=== PATIENT | female | born 1960 | race Hispanic/Latino ===

== ENCOUNTER → 2019-04-29 | Day surgery (SDC) | payer OTHER ==
[2019-04-27 13:39] LABS: BASOPHILS % 0.2 % (0.0-1.0); EOSINOPHILS # (AUTO) 0.1 (0.0-0.4); EOSINOPHILS % 1.3 % (0.0-6.0); HEMOGLOBIN 13.3 g/dL (12.0-16.0); LYMPHOCYTES # (AUTO) 1.9 (1.0-3.2); LYMPHOCYTES % 30.9 % (18.0-39.1); MEAN CORPUSCULAR HEMOGLOBIN 28.7 pg (28-32); MEAN CORPUSCULAR HGB CONC 33.3 g/dL (31-35); MEAN CORPUSCULAR VOLUME 86.2 fL (81-99); MONOCYTES # (AUTO) 0.4 (0.2-0.8); MONOCYTES % 6.8 % (4.4-11.3); NEUTROPHILS # (AUTO) 3.8 (2.1-6.9); NEUTROPHILS % 60.5 % (38.7-80.0); PLATELET COUNT 237 x10e3/uL (140-360); RED BLOOD COUNT 4.64 x10e6/uL (3.6-5.1); RED CELL DISTRIBUTION WIDTH 12.5 % (11.7-14.4)
[2019-04-27 13:48] LABS: ANION GAP 12.9 mmol/L (8-16); BLOOD UREA NITROGEN 16 mg/dL (7-26); BUN/CREATININE RATIO 25 (6-25); CALCIUM 9.5 mg/dL (8.4-10.2); CARBON DIOXIDE 27 mmol/L (22-29); CHLORIDE 104 mmol/L (98-107); CREATININE, SERUM 0.63 mg/dL (0.57-1.11); EST GLOMERULAR FILTRATION RATE > 60 ML/MIN (60-); GLUCOSE 123 mg/dL (74-118); POTASSIUM 3.9 mmol/L (3.5-5.1); SODIUM 140 mmol/L (136-145)
[~2019-04-29] MED LIST: ASPIRIN81 MG PO; BUPIVACAINE 0.25%/EPI 30ML SDV INJ ONE; CENTRUM ADULTS1 EACH PO; CITRACAL + BON1 EACH PO; DEXAMETHASONE SOD PHOS INJ 4 MG/ML VIAL ONE; FENTANYL CITRATE/PF 100MCG/2 ML INJ ONE; LEVOTHYROXINE50 MCG PO; LIDOCAINE HCL 1% LOCAL INJ 20 ML VIAL ONE; LIDOCAINE HCL 2% LOCAL INJ 5 ML SDV VIAL INJ ONE; MIDAZOLAM HCL 2 MG/2 ML VIAL ONE; ONDANSETRON HCL INJ 2MG/ML 2ML 2 MG/ML VIAL ONE; PROPOFOL IV EMULSION 10 MG/ML 20 ML VIAL ONE; SEVOFLURANE INHAL SOLN 250 ML PEN BTL ONE; TRANEXAMIC ACI650 MG PO; VITAMIN D22000 UNIT PO
[2019-04-29 15:10] VITALS: BP 107/64
--- NOTE | 2019-04-29 20:30 | Operative Report ---
DATE OF PROCEDURE: 04/29/2019 SURGEON: Pan Cheek MD PREOPERATIVE DIAGNOSIS: Suspicious mass of the left breast. POSTOPERATIVE DIAGNOSIS: Suspicious mass of the left breast, pending permanent section. OPERATION PERFORMED: Left partial mastectomy with preoperative mammographic directed needle localization and intraoperative specimen mammography. TRANSPORTATION INSPECTOR: BROOKE Murguia. ANESTHESIA: General. COMPLICATIONS: None. ESTIMATED BLOOD LOSS: Minimal. DESCRIPTION OF PROCEDURE: With the patient lying in bed in the supine position under good general anesthesia after having undergone a needle localization of the mass on the left breast. The left breast was prepped with Betadine solution and draped in the usual manner. The area overlying the lesion was then infiltrated with 0.25% Marcaine. An incision was made, which was carried down through the subcutaneous tissue and the wire was followed to the area in question, which was then encircled and totally and completely removed. The specimen was sent for specimen mammography, which showed the clip was contained within the specimen, although it was somewhat close in the upper margin, so we went ahead then and re-resected a small portion of the upper margin to make sure that the rest of the lesion was totally resected. The whole area was then thoroughly irrigated. Perfect hemostasis was ascertained. The breast tissue was then reapproximated with interrupted sutures of 2-0 chromic and the skin was closed with subcuticular 5-0 Vicryl. Benzoin, Steri-Strips, and Band-Aids were applied. The sponge, lap, and needle count was correct. The patient tolerated the procedure well and returned to the recovery room in stable condition. Pan Cheek MD JLR/MODL /[id number]
--- NOTE | 2019-04-30 08:23 | Diagnostic Imaging Report ---
THIS REPORT HAS BEEN AMENDED. #[id number] - [id number] NEEDLE LOCALIZATION LEFT BREAST: 04/29/2019 Correlation is made to exams dated: 02/04/2019 stereotactic biopsy, 01/13/2019 ultrasound and 01/13/2019 mammogram - [facility]. A needle localization was performed for the marker clip located in the left breast at 3 o'clock middle depth. This was described on the previous mammography report. The skin was prepped in the usual manner. Local anesthetic was administered to the access site. A 7 cm Kopans needle was inserted into the targeted area. IMPRESSION: NEEDLE LOCALIZATION Needle localization for the marker clip in the left breast at 3 o'clock middle depth was successful. TAIWO MÉNDEZ M.D. ct/:04/29/2019 14:20:35 Equipment Mechanic Specialist: Maria Ines YOUNGBLOOD(Day[place])(Bonnie), [facility] [id number] AMENDMENT: 06/03/2019 TAIWO MÉNDEZ M.D. Pathology report from the excisional biopsy has become available. The report indicates: mammary duct ectasia and apocrine metaplasia. Negative for carcinoma. Please refer to the full report, or consult the hospital pathologist, for additional details.
--- NOTE | 2019-04-30 08:23 | Diagnostic Imaging Report ---
#[id number] - BRSPECLT SPECIMEN LEFT BREAST: 04/29/2019 Correlation is made to exams dated: 04/29/2019 localization - [facility], 01/13/2019 ultrasound, 01/13/2019 mammogram and 02/04/2019 stereotactic biopsy - [facility]. A specimen was imaged for the previous biopsy site located in the left breast at 3 o'clock middle depth. IMPRESSION: SPECIMEN The imaged specimen includes a biopsy clip and the distal portion of the biopsy wire. TAIWO MÉNDEZ M.D. ct/penrad:04/29/2019 14:21:35 Automobile Parker: Maria Ines YOUNGBLOOD(R)(M), [facility]
--- OUTSIDE RECORDS SUMMARY | 2019-05-07 11:53 | XMS REPORT ---
Author Author [facility] Address Unknown Phone Unavailable Care Team Providers Care Data Officer Name Role Phone Esperanza CAMPBELL Unavailable Unavailable Problems This patient has no known problems. Allergies, Adverse Reactions, Alerts This patient has no known allergies or adverse reactions. Medications This patient has no known medications. Results Test Description Test Time Test Comments Text Results Atomic Results Result Comments BREAST SPECIMEN LT RADIOGRAPH 2019-04-29 13:31:00 [place] [address] Patient Name: LARA CAMARA MR #: [id number] : 1960 Age/Sex: 58/F Req #: [id number] [facility] Physician: Ordered by: JNE CAMPBELL MD Report #: [id number] Location: OR Room/Bed: Procedure: [id number] MG/BREAST SPECIMEN LT RADIOGRAPH Exam Date: 04/29/19 Exam Time: 1319 REPORT STATUS: Signed #[id number] - BRSPECLT SPECIMEN LEFT B REAST: 04/29/2019 Correlation is made to exams dated: 04/29/2019 localization - [facility], 01/13/2019 ultrasound, 01/13/2019 mammogram and 02/04/2019 stereotactic biopsy - [facility]. A specimen was imaged for the previous biopsy site located in the left breast at 3 o'clock middle depth. IMPRESSION: SPECIMEN The imaged specimen includes a biopsy clip and the distal portion of the biopsy wire. TAIWO galdamez/jerome:04/29/2019 14:21:35 Slot Floor Supervisor: Maria Ines YOUNGBLOOD (R)(Bonnie), [facility] Dictated By: TAIWO MÉNDEZ MD 20 Transcribed By: JEROME on 04/29/191420 COPY TO: JEN CAMPBELL MD PERQ DEVICE BRST 1ST IMAG-LT 2019-04-29 12:43:00 [facility] [address] [place] [address] Patient Name: LARA CAMARA MR #: [id number] : 1960 Age/Sex: 58/F Req #: [id number] Adm Physician: Ordered by: JEN CAMPBELL MD Report #: [id number] Location: OR Room/Bed: Procedure: [id number] MG/PERQ DEVICE BRST IMAG-LT Exam Date: Exam Time: REPORT STATUS: Signed #[id number] - [id number] NEEDLE LOCALIZATION LEFT BR EAST: 04/29/2019 Correlation is made to exams dated: 02/04/2019 stereotactic biopsy, 01/13/2019 ultrasound and 01/13/2019 mammogram - [facility]. A needle localization was performed for the marker clip located in the left breast at 3 o'clock middle depth. This was described on the previous mammography report. The skin was prepped in the usual manner. Local anesthetic was administered to the access site. A 7 cm Kopans needle was inserted into the targeted area. IMPRESSION: NEEDLE LOCALIZATION Needle localization for the marker clip in the left breast at 3 o'clock middle depth was successful. TAIWO MÉNDEZ M.D. ct/:04/29/2019 14:20:35 Slot Floor Supervisor: Maria Ines JACKSON)(Bonnie), [facility] [id number] Dictated By: TAIWO MÉNDEZ MD 19 Transcribed By: JEROME on 04/29/191419 COPY TO: JEN CAMPBELL MD BREAST STEREO CORE BIOPSY LEFT 2019-02-10 12:24:29 - BREAST STEREO CORE BIOPSY LEFTSTEREOTACTIC GUIDED BIOPSY LEFT BREAST USING VACUUM DEVICE WITH MARKING DEVICE INSERTED AND POST MAMMOGRAPHIC IMAGIN02/04/2019CLINICAL: Stereotactic biopsy, left breast. Comparison is made to exams dated 01/13/2019 mammogram, 11/24/2017 mammogram, and 07/13/2016 mammogram - [facility]-. A stereotactic guided biopsy was performed for the area of architectural distortion located in the left breast at 2 o'clock. This was described on the previous mammography report. The skin was prepped in the usual manner. Local anesthetic was administered to the access site. The abnormality was approached using an upright digital mammography unit. A 10 gauge biopsy needle was placed adjacent to the abnormality under computer guidance and confirmatory stereotact ic mammography images were obtained to document needle placement. Once the needle was documented to be in the correct location, multiple specimens were obtained using the [employer] system. A clip was inserted into the biopsy cavity. A skin closure strip was applied to the access site. Post procedure mammographic imaging was obtained. The specimens were sent to the laboratory for pathological analysis. IMPRESSION: STEREOTACTIC GUIDED BIOPSY HIGH RISK BENIGN Stereotactic guided biopsy of the area of architectural distortion in the left breast at 2 o'clock was performed. PATHOLOGY INDICATES:High risk benign radial sclerosing lesion. RECOMMENDATION:A surgical excision and a wire localization are recommended. Charlotte Sevilla M.D. dm/:02/10/2019 12:24:29 Entry: - 02/10/2019 14:20:46Attending Technologist: Jennifer DELUNA, [facility]-FWImaging Technologist: Sophia DELUNA, [facility]-FWletter sent: Surgical Consult Recommended BREAST STEREO CORE BIOPSY LEFT 2019-02-10 12:24:29 - BREAST STEREO CORE BIOPSY LEFTSTEREOTACTIC GUIDED BIOPSY LEFT BREAST USING VACUUM DEVICE WITH MARKING DEVICE INSERTED AND POST MAMMOGRAPHIC IMAGIN02/04/2019CLINICAL: Stereotactic biopsy, left breast. Comparison is made to exams dated 01/13/2019 mammogram, 11/24/2017 mammogram, and [facility] A stereotactic guided biopsy was performed for the area of architectural distortion located in the left breast at 2 o'clock. This was described on the previous mammography report. The skin was prepped in the usual manner. Local anesthetic was administered to the access site. The abnormality was approached using an upright digital mammography unit. A 10 gauge biopsy needle was placed adjacent to the abnormality under computer guidance and confirmatory stereotact ic mammography images were obtained to document needle placement. Once the needle was documented to be in the correct location, multiple specimens were obtained using the [employer] system. A clip was inserted into the biopsy cavity. A skin closure strip was applied to the access site. Post procedure mammographic imaging was obtained. The specimens were sent to the laboratory for pathological analysis. IMPRESSION: STEREOTACTIC GUIDED BIOPSY HIGH RISK BENIGN Stereotactic guided biopsy of the area of architectural distortion in the left breast at 2 o'clock was performed. PATHOLOGY INDICATES:High risk benign radial sclerosing lesion. RECOMMENDATION:A surgical excision and a wire localization are recommended. Charlotte Sevilla M.D. dm/:02/10/2019 12:24:29 Entry: - 02/10/2019 14:20:46Attending Technologist: Jennifer DELUNA, [facility]-Imaging Technologist: Sophia DELUNA, [facility]-letter sent: Surgical Consult Recommended BREAST ULTRASOUND LEFT 2019-01-13 10:00:40 - BREAST ULTRASOUND LEFTULTRASOUND OF LEFT BREAST: 01/13/2019CLINICAL: Abnormal mammogram. Comparison is made to exams dated 01/13/2019 mammogram, 06/15/2018 ultrasound, 12/08/2017 ultrasound, 12/08/2017 mammogram, and 11/24/2017 mammogram - [facility]-. Ultrasound of the left breast was performed. Denson scale images of the real-time examination were reviewed. Ultrasound of the left breast demonstrates stable isoechoic oval mass with circumscribed margins measuring 11 x 6 x 8 mm at the site of prior ultrasound finding at 12 o'clock at a distance of 5 cm from the nipple, unchanged since 12/08/2017.Survey ultrasound of the remaining breast and axilla demonstrates no sonographic abnormality.IMPRESSION: SUSPICIOUS OF MALIGNANCY - FOLLOW-UP RECOMMENDEDLEFT BREAST: Architectural distortion on CC view laterally at middle depth at a distance of 4 cm from the nipple, with no sonographic correlate. BI-RADS Category 4A. Tomosynthesis guided core biopsy is recommended at this time.Stable oval mass measuring 11 mm at 12 o'clock, 5 cm from nipple, unchanged since 12/08/2017. BI-RADS Category 3. Interval follow-up ultrasound is recommended in 12 months to document two-year stability.The resul ts were reviewed with the patient. José Luis Ochoa M.D. qn/:01/13/2019 10:00:40 Slot Floor Supervisor: Preeti DELUNA [facility]-letter sent: BIRADS 4/5 Biopsy Ultrasound BI-RADS: 4a Suspicious abnormality - low suspicion for malignancy SCR MAMM BILATERAL LEE CAD DIGITAL 2019-01-13 09:39:09 - SCR MAMM BILATERAL LEE CAD DIGITALBILATERAL DIGITAL SCREENING MAMMOGRAM 3D/2D WITH CAD: 01/13/2019CLINICAL: Asymptomatic. Digital breast tomosynthesis was performed in addition to routine CC and MLO views. Current mammographic images were evaluated by either a [employer] M-Vu or a [employer] ImageChecker CAD (computer aided detection system). Comparison is made to exams dated 11/24/2017 mammogram, 2016 mammogram, and 10/07/2014 mammogram - [facility]-. There are scattered fibroglandular tissues in both breasts. There is left breast architectural distortion on CC view laterally at middle depth at a distance of 4 cm from the nipple.No other suspicious mass, malignant type calcification, or lymph node abnormality detected. IMPRESSION: INCOMPLETE ASSESSMENT: ADDITIONAL IMAGING EVALUATION RECOMMENDEDLEFT BREAST: Architectural distortion on CC view laterally at middle depth at a distance of 4 cm from the nipple. Same day left breast ultrasound to follow.José Luis Ochoa M.D. qn/:01/13/2019 09:39:09 Entry: - 01/14/2019 16:31:03Imaging Technologist: Sophia DELUNA [facility]-Mammogram BI-RADS: 0 Indeterminate BREAST ULTRASOUND LEFT 2018-06-15 10:15:37 - BREAST ULTRASOUND LEFTULTRASOUND OF LEFT BREAST: 06/15/2018CLINICAL: Followup to previous exam. Comparison is made to exams dated 12/08/2017 ultrasound, 12/08/2017 mammogram, and 11/24/2017 mammogram - [facility]-. Real-time ultrasound of the 4 quadrants and axilla of the left breast was performed. There is redemonstration of a circumscribed oval mass, measuring 14 x 8 x 7 mm, in the left breast at 12 o'clock, 5 cm from the nipple, with the long axis parallel to the skin. There has been no significant interval change. No other significant findings. No left axillary lymphadenopathy was seen.IMPRESSION: PROBABLY BENIGN - FOLLOW-UP RECOMMENDEDStable, probably benign, left breast mass at 12 o'clock, 5 cm from the nipple.A follow-up ultrasound in 6 months is recommended to demonstrate stability. The patient will also be due for her bilateral annual mammogram at that time.Findings and recommendations were discussed with the patient at the conclusion of the examination today.Gabrielle Pena D.O. al/:06/15/2018 10:15:37 Slot Floor Supervisor: Carlyn Hernandez , [facility]-letter sent: Short Term Follow Up Ultrasound BI-RADS: 3 Probably benign
== END | disposition home or self-care (01) ==
LOC: OR 13:42
PROVIDERS: ATTEND Surgery
DX: N63.20 Unspecified lump in the left breast, unspecified quadrant (principal); N64.89 Other specified disorders of breast; N60.42 Mammary duct ectasia of left breast; N60.82 Other benign mammary dysplasias of left breast
CPT/HCPCS: 19281; 19301; 36415; 76098; 80048; 85025; 88305; 88307; 93005; J1100; J2001 ×2; J2250; J2405; J2704; J3010